=== PATIENT | male | born 1965 | race Caucasian/White ===

== ENCOUNTER 2016-04-14 16:53 | Emergency (ER) | payer BC, OTHER ==
[~2016-04-14] VITALS: Ht 172.7 cm; Wt 90.9 kg
[2016-04-14] MEDS ORDERED: KETOROLAC 30 MG INJ IM STA (16:57)
[2016-04-14 16:59] VITALS: Ht 172.7 cm; Wt 90.9 kg
--- NOTE | 2016-04-14 17:21 | RADRPT ---
PROCEDURE: Chest x-ray CLINICAL INDICATION: Cough TECHNIQUE: Chest single view COMPARISON: 09/19/2007 FINDINGS: The heart is normal in size. The pulmonary vessels are normal in caliber. The lungs are clear. Th e costophrenic angles are sharp. The visualized bony thorax is unremarkable. IMPRESSION: No acute cardiopulmonary disease. RPTAT: HH .Antolin Griffin MD, Date Time Electronically viewed and signed by .Antolin Griffin MD, on 04/14/2016 17:21 .W/
[2016-04-14] MEDS ORDERED: DIVA500T7 PO ×2 (17:31→18:03)
[2016-04-14] MEDS ORDERED: TRAZ300T15 PO ×2 (17:31→18:03)
[2016-04-14] MEDS ORDERED: VENL150C94 PO (17:32)
[2016-04-14 18:01] VITALS: BP 150/90; PULSE 63; RESP 16
[2016-04-14] MEDS ORDERED: ALBU18HF INHALATION (18:03)
[2016-04-14] MEDS ORDERED: VENL150T PO (18:03)
[2016-04-14] MEDS ORDERED: HYDR-3652 PO (18:03)
[2016-04-14] MEDS ORDERED: AZIT250T94 PO (18:03)
--- NOTE | 2016-04-14 18:08 | ERD ---
ER Documentation Chief Complaint Date/Time DATE: 04/14/16 TIME: 18:06 Chief Complaint BROUGHT IN VIA EMS FROM HOME DUE TO COUGH X1 WEEK HPI 50-year-old male history of rheumatoid arthritis not on immunosuppressants who presents with cough from 1 week. Patient describes 1 week of cough that is slightly productive, otherwise dry. He also describes diffuse body pain that is moderate and throbbing. No fevers or chills, no headache chest pain or pleuritic pain. ROS All systems reviewed and are negative except as per history of present illness. Medications Home Meds Active Scripts Hydrocodone Bit/Homatrop Me-Br ([place] 5-1.5 mg Tablet) 1 Each Tablet, 1 EACH PO TID Y for cough or pain, #15 TAB Prov:CEZAR KRAMER MD 04/14/16 Azithromycin* (Zithromax*) 250 Mg Tablet, 250 MG PO .ZPACK DIRECTED, #6 TAB TAKE 500 MG (2 TABS) THE FIRST DAY THEN 250 MG (1 TAB) DAYS 2-5 Prov:CEZAR KRAMER MD 04/14/16 Albuterol Sulfate* (Ventolin HFA*) 18 Gm Hfa.aer.ad, 2 PUFF INHALATION Q4H, #1 INHALER Prov:CEZAR KRAMER MD 04/14/16 Venlafaxine Hcl* (Venlafaxine Hcl ER*) 150 Mg Tab.er.24, 150 MG PO DAILY for 30 Days, TAB.SA Prov:CEZAR KRAMER MD 04/14/16 Trazodone Hcl* (Trazodone Hcl*) 300 Mg Tablet, 300 MG PO QHS, #30 TAB Prov:CEZAR KRAMER MD 04/14/16 Divalproex Sodium* (Depakote*) 500 Mg Tablet.dr, 1000 MG PO BID for 3 Days, TAB Prov:CEZAR KRAMER MD 04/14/16 Reported Medications Venlafaxine Hcl* (Venlafaxine Hcl ER*) 150 Mg Cap.er.24h, 150 MG PO DAILY, CAP 04/14/16 Trazodone Hcl* (Trazodone Hcl*) 300 Mg Tablet, 300 MG PO QHS, #30 TAB 04/14/16 Divalproex Sodium* (Depakote ER*) 500 Mg Tabsr, 1000 MG PO BID, #120 TAB.SA 04/14/16 Allergies Allergies: Coded Allergies: No Known Drug Allergy (Verified Allergy, Mild, 04/14/16) PMhx/Soc History of Surgery: No Anesthesia Reaction: No Hx Respiratory Disorders: No Hx Cardiac Disorders: No Hx Psychiatric Problems: No Hx Alcohol Use: No Hx Substance Use: No Hx Tobacco Use: Yes Smoking Status: Current every day smoker FmHx Family History: No diabetes Physical Exam Vitals Vital Signs Date Time Temp Pulse Resp B/P Pulse Ox O2 Delivery O2 Flow Rate FiO2 04/14/16 18:01 63 16 150/90 100 Room Air 04/14/16 16:59 98.6 98 16 136/84 98 Physical Exam General: Well developed, well nourished, no acute distress Head: Normocephalic, atraumatic. Eyes: Pupils equally reactive, EOM intact ENT: Moist mucous membranes Neck: Supple, no lymphadenopathy Respiratory: Lungs clear bilaterally, no distress Cardiovascular: RRR, no murmurs, rubs, or gallops Abdominal: Soft, non-tender, non-distended, no peritoneal signs : Deferred MSK: No edema, no unilateral swelling, 5/5 strength Neurologic: Alert and oriented, moving all extremities, normal speech, no focal weakness, no cerebellar signs Skin: No rash Psych: Anxious Results 24 hrs Current Medications Medications (Trade) Dose Ordered Sig/Noemi Route PRN Reason Start Time Stop Time Status Last Admin Dose Admin Ketorolac Tromethamine (Toradol) 30 mg ONCE STAT IM 04/14/16 16:57 04/14/16 16:59 DC 04/14/16 17:08 Procedures/MDM EKG, MONITORS, & DIAGNOSTIC IMAGING: EKG: I reviewed and interpreted a 12-lead EKG. Rhythm: Normal sinus rhythm Ectopy: None Intervals: No abnormalities ST segments: No elevations or depressions T waves: No contiguous inversions Chest x-ray: I reviewed and interpreted a 1 view of the chest Mediastinum: No enlargement Cardiac silhouette: No cardiomegaly Airspace: Clear lung nowak bilaterally without evidence of pneumothorax Bones: No evidence of fracture MEDICAL DECISION MAKING: The patient presents with body pain and cough. This is very consistent with viral process versus acute bronchitis. Low concern for pneumonia. The patient' s cures report does not show any drug-seeking behavior. The patient does have rheumatoid arthritis but does not take immunosuppressants. At this time the patient is afebrile with normal vital signs clear lung sounds and otherwise well-appearing other than some anxiety. The patient is also asking for refills of his psychiatry medications. ER COURSE: The patient was given Toradol, chest x-ray is normal. I believe the patient will benefit from outpatient treatment with pain control medication, cough control, antibiotics in the form of azithromycin to cover atypical agents. His psychiatric medications including Depakote, trazodone, venlafaxine have been refilled. I kept the patient and/or family informed of laboratory and diagnostic imaging results throughout the emergency room course. DISPOSITION PLAN: We discussed follow up with the patient's primary care doctor within 24 to 48 hours as needed. We also discussed return to the emergency room for worsening symptoms or worsening condition. Discharge Medications: Ventolin, Hycodan, azithromycin, Depakote, trazodone, venlafaxine Departure Diagnosis: Primary Impression: Acute bronchitis Bronchitis organism: unspecified organism Qualified Code: J20.9 - Acute bronchitis, unspecified organism Additional Impression: Medication refill Condition: Stable Patient Instructions: Acute Bronchitis Referrals: [facility] YOU HAVE RECEIVED A MEDICAL SCREENING EXAM AND THE RESULTS INDICATE THAT YOU DO NOT HAVE A CONDITION THAT REQUIRES URGENT TREATMENT IN THE EMERGENCY DEPARTMENT. FURTHER EVALUATION AND TREATMENT OF YOUR CONDITION CAN WAIT UNTIL YOU ARE SEEN IN YOUR DOCTORS OFFICE WITHIN THE NEXT 1-2 DAYS. IT IS YOUR RESPONSIBILITY TO MAKE AN APPOINTMENT FOR FOLOW-UP CARE. IF YOU HAVE A PRIMARY DOCTOR --you should call your primary doctor and schedule an appointment IF YOU DO NOT HAVE A PRIMARY DOCTOR YOU CAN CALL OUR PHYSICIAN REFERRAL HOTLINE AT IF YOU CAN NOT AFFORD TO SEE A PHYSICIAN YOU CAN CHOSE FROM THE FOLLOWING [facility] [address] [facility] [address] [facility] [address] [facility] [address] [facility] [address] [facility]. [facility] [address] [facility]. [facility] YOU HAVE RECEIVED A MEDICAL SCREENING EXAM AND THE RESULTS INDICATE THAT YOU DO NOT HAVE A CONDITION THAT REQUIRES URGENT TREATMENT IN THE EMERGENCY DEPARTMENT. FURTHER EVALUATION AND TREATMENT OF YOUR CONDITION CAN WAIT UNTIL YOU ARE SEEN IN YOUR DOCTORS OFFICE WITHIN THE NEXT 1-2 DAYS. IT IS YOUR RESPONSIBILITY TO MAKE AN APPOINTMENT FOR FOLOW-UP CARE. IF YOU HAVE A PRIMARY DOCTOR --you should call your primary doctor and schedule and appointment IF YOU DO NOT HAVE A PRIMARY DOCTOR YOU CAN CALL OUR PHYSICIAN REFERRAL HOTLINE AT . IF YOU CAN NOT AFFORD TO SEE A PHYSICIAN YOU CAN CHOSE FROM THE FOLLOWING [facility] INSTITUTIONS: [facility] [address] [place] [address] [facility] [address] [place], [place] [id number] [place] [address] [address] [place] [address] Additional Instructions: Call your primary care doctor TOMORROW for an appointment during the next 1 WEEK.Tell the hospice patient care secretary that you were referred from this facility.See the doctor sooner or return here if your condition worsens before your appointment time. CEZAR KRAMER MD Apr 14, 2016 18:08
== END 2016-04-14 18:16 | disposition home or self-care (01) ==
LOC: E/R 16:53
DX: J20.9 Acute bronchitis, unspecified (principal); R40.2252 Coma scale, best verbal response, oriented, at arrival to emergency department; F17.210 Nicotine dependence, cigarettes, uncomplicated; R40.2142 Coma scale, eyes open, spontaneous, at arrival to emergency department; R40.2362 Coma scale, best motor response, obeys commands, at arrival to emergency department; Z76.0 Encounter for issue of repeat prescription
CPT/HCPCS: 71010; 93005; 96372; J1885; Z7502